=== PATIENT | female | born 1975 | race Two or more races ===

== ENCOUNTER 2025-02-15 21:16 | Emergency (ER) | payer MEDICAID, MEDICARE ==
[~2025-02-15] VITALS: Ht 170.2 cm; Wt 84.8 kg
[~2025-02-15 21:16] MED LIST: ACET325T53 PO; MECL-159 PO; METH4TAB3 PO
[2025-02-15] MEDS ORDERED: HYDROMORPHONE 1 MG/1 ML DISP.SYRIN ONE (22:36)
[2025-02-15] MEDS ORDERED: ONDANSETRON ODT 4 MG TAB.RAPDIS ONE (22:36)
[2025-02-15] MEDS: ONDANSETRON ODT 4 MG TAB.RAPDIS SL ONE (22:41)
[2025-02-15] MEDS: HYDROMORPHONE 1 MG/1 ML DISP.SYRIN IM ONE ×2 (22:41→23:45)
[2025-02-16] MEDS ORDERED: HYDROMORPHONE 2 MG/1 ML DISP.SYRIN ONE (00:54)
[2025-02-16] MEDS ORDERED: HYDR-3980 PO (01:04)
[2025-02-16 02:08] VITALS: BP 141/106; TEMP 98; O2SAT 99
== END 2025-02-16 01:45 | disposition home or self-care (01) ==
LOC: ER 21:23
DX: M54.2 Cervicalgia (principal); M79.641 Pain in right hand; M25.552 Pain in left hip; M25.511 Pain in right shoulder; F17.210 Nicotine dependence, cigarettes, uncomplicated; Z88.7 Allergy status to serum and vaccine; V43.62XA Car passenger injured in collision with other type car in traffic accident, initial encounter; Y93.89 Activity, other specified; Y92.488 Other paved roadways as the place of occurrence of the external cause; Y99.8 Other external cause status
CPT/HCPCS: 99285; 72125; 99406; 29125; 73030; 73060; 73130; 73502; 96372 ×2; J1171 ×2; A4606; A4663; Q0162